=== PATIENT | female | born 1985 | race Caucasian/White ===

== ENCOUNTER 2018-11-07 11:47 | Observation (INO) | payer MEDICAID ==
--- NOTE | 2018-11-07 11:57 | ED Physician Documentation ---
General Adult - HISTORIAN Historian: patient - HPI Stated Complaint: nausea and vomiting x 4 days exposed to flu A Chief Complaint: Nausea,Vomiting,Diarrhea Onset: days ago (4) Timing: still present Severity: moderate Further Comments: yes (She states that she was exposed to Influenza A this week from a friend who is now hospitalized. She has had low grade fever x 3 days. nausea started 4 days ago with vomiting that is increasing. She is worried about her potassium which she self medicates over the counter because a few years ago she had low potassium with a similar illness. She has tried to drink fluids this am but states she just keeps vomiting. She states she has had 14 episodes of vomiting this am. She was once on b/p meds but was told to stop because she was better. Denies any abdominal pain.) Last known Well Code/Unknown Code: Unknown - ROS CONST: fever, weakness EYES/ENT: denies: sore throat, nasal drainage, nasal congestion CVS/RESP: cough. denies: shortness of breath GI/: vomiting, nausea. denies: abdominal pain, problems urinating, diarrhea MS/SKIN/LYMPH: denies: rash NEURO/PSYCH: denies: headache - PAST HX Past History: other (she was treated for hypertension but was told she is better this was approx one year ago ) Immunizations: UTD Allergies/Adverse Reactions: Allergies Allergy/AdvReac Type Severity Reaction Status Date / Time meperidine [From Demerol] Allergy Mild Itchy Skin Verified 11/07/18 12:21 Home Medications: Ambulatory Orders Medication Instructions Recorded Potassium 11/07/18 - SOCIAL HX Smoking History: cigarettes Alcohol Use: none Drug Use: none - FAMILY HX Family History: No - VITAL SIGNS Vital Signs: Vital Signs Temp Pulse Resp BP Pulse Ox 124/72 12/04/15 22:44 - REVIEWED ASSESSMENTS Nursing Assessment Reviewed: Yes Vitals Reviewed: Yes Progress - Progress Progress: 1340: nausea is improved. NO vomiting since arrival. DG 1345: based on lab and UTI will admit for observation DG ED Results Lab/Radiology - Radiology Radiology Impressions: Chest, PA and lateral History: Cough, fever Findings: The heart, lungs, pleura, mediastinum and bony thorax are normal. Impression: Normal. Electronically signed on Nov 07, 2018 1:40:41 PM NURSERY SCHOOL TEACHER by: Faisal Parikh General Adult Physical Exam - PHYSICAL EXAM GENERAL APPEARANCE: no distress EENT: eye inspection normal, no signs of dehydration NECK: normal inspection CVS: reg rate & rhythm, heart sounds normal ABDOMEN: soft, normal bowel sounds, no distension, non-tender BACK: normal inspection, no CVA tenderness SKIN: warm/dry, normal color EXTREMITIES: non-tender, normal range of motion, no evidence of injury, no edema NEURO: oriented X3 Discharge Clincal Impression: Hypokalemia UTI (urinary tract infection) Qualifiers: Urinary tract infection type: site unspecified Hematuria presence: without hematuria Qualified Code(s): N39.0 - Urinary tract infection, site not specified Comments: 1345 admit observation DG Condition: Fair Disposition: ADMITTED INPATIENT Decision to Admit: [id number] Date of Decison to Admit: 11/07/18 Decision Time: 13:45
[2018-11-07] MEDS ORDERED: ONDANSETRON HCL/PF 4 MG/ 2ML VIAL IVP ONE (12:09)
[2018-11-07] MEDS ORDERED: 0.9 % SODIUM CHLORIDE 1,000 ML IV ONE (12:09)
[2018-11-07] MEDS ORDERED: POTASSIUM CHLORIDE 20 MEQ/10ML VIAL IV ONE (13:13)
[2018-11-07] MEDS ORDERED: POTASSIUM CHLORIDE 20 MEQ/NS 1,000 ML IV ONE ×2 (13:35→13:38)
[2018-11-07] MEDS ORDERED: ONDANSETRON HCL/PF 4 MG/ 2ML VIAL IVP PRN (14:02)
[2018-11-07] MEDS ORDERED: CIPROFLOXACIN/D5W 400 MG in PREMIX BAG 1 BAG IV ONE (14:05)
--- NOTE | 2018-11-07 14:30 | Diagnostic Imaging Report ---
NEDRA MANE [facility] [id number] [facility] [address] [place], [place]. [address] Report Submission Date: Nov 07, 2018 1:40:41 PM BLENDING KETTLE TENDER Patient Study Name: ALICIA LR Date: Nov 07, 2018 1:04:46 PM BLENDING KETTLE TENDER Modality Type: DX Gender: F Description: CHEST : 81 Institution: [facility] Physician: NEDRA MANE Chest, PA and lateral History: Cough, fever Findings: The heart, lungs, pleura, mediastinum and bony thorax are normal. Impression: Normal. Electronically signed on Nov 07, 2018 1:40:41 PM BLENDING KETTLE TENDER by: Faisal LIM
[2018-11-07 16:17] VITALS: BMI 27.8
[2018-11-07] MEDS ORDERED: CIPROFLOXACIN/D5W 200 ML IV ONE (17:26)
[2018-11-07] MEDS ORDERED: POTASSIUM CHLORIDE 10 MEQ TABLET.ER PO ONE (17:30)
[2018-11-07] MEDS: 0.9 % SODIUM CHLORIDE 1,000 ML IV SCH (18:16)
--- NOTE | 2018-11-07 19:51 | History and Physical Report ---
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 Gastrointestinal: denies: Constipation, GERD Heme/Onc: denies: Anemia NOS Psych: denies: Anxiety Musculoskeletal: denies: Chronic low back pain Rheumatologic: denies: Fibromyalgia - Past Surgical History Past Surgical History: None - Past Social History Smoke: 1 pack per day Alcohol: None Drugs: None Lives: Alone Domestic Violence: Negative - Health Maintenance Health Maintenance: Other (medication compliance ) Pneumonia Vaccine: No Resuscitation Status: Resusciation Status Resuscitation Status Full Code Review of Systems - Review of Systems Constitutional: Fever, Chills, Weakness Eyes: negative: pain ENT: negative: Ear Pain, Mouth Pain Respiratory: negative: Cough Cardiovascular: negative: Chest Pain, Palpitations Gastrointestinal: Nausea, Vomiting, Diarrhea. negative: Abdominal Pain Genitourinary: negative: Dysuria Musculoskeletal: negative: Neck Pain Skin: negative: Rash Neurological: Weakness. negative: Numbness, Incoordination, Change in Speech - Medications/Allergies Allergies/Adverse Reactions: Allergies Allergy/AdvReac Type Severity Reaction Status Date / Time meperidine [From Demerol] Allergy Mild Itchy Skin Verified 11/07/18 14:52 Home Medications: Home Medications Promethazine HCl [Phenergan] 25 mg PO Q6H PRN 11/07/18 Current Inpatient Medications: Current Inpatient Medications CIPROFLOXACIN/D5W 400 mg/ (PREMIX BAG) 200 mls @ 200 mls/hr IV NOW ONE Stop: 11/07/18 15:04 Last Admin: 11/07/18 18:18 Dose: 200 mls/hr Sodium Chloride (Normal Saline) 1,000 mls @ 100 mls/hr IV Q10H [facility] Last Admin: 11/07/18 18:16 Dose: 100 mls/hr Ondansetron HCl (Zofran 4 Mg/2 Ml) 4 mg IVP Q6H PRN PRN Reason: Nausea / Vomiting Potassium Chloride (Klor-Con 10) 10 meq PO DAILY ONE Stop: 11/07/18 17:31 Last Admin: 11/07/18 17:30 Dose: 10 meq Potassium Chloride (Klor-Con 10) 10 meq PO DAILY [facility] Exam - Exam Vital Signs: Vital Signs (72 hours) 11/07/18 11/07/18 11/07/18 11:52 13:59 14:16 Temperature 99.3 F 98.6 F Pulse Rate 88 Pulse Rate [ 98 H 88 Right Pulse ox] Respiratory 32 H 18 Rate Blood Pressure 143/106 130/85 [Right Arm] O2 Sat by Pulse 97 98 96 Oximetry 11/07/18 11/07/18 11/07/18 15:45 16:00 16:20 Temperature 98.6 F 98.6 F Pulse Rate 88 88 Pulse Rate [ 88 88 Right Pulse ox] Respiratory 18 18 Rate Blood Pressure 130/85 130/85 [Right Arm] O2 Sat by Pulse 96 96 Oximetry 11/07/18 11/07/18 11/07/18 17:00 17:19 18:00 Temperature 98.6 F Pulse Rate 84 76 Pulse Rate [ 69 Right Pulse ox] Respiratory 16 Rate Blood Pressure 138/78 [Right Arm] O2 Sat by Pulse 96 98 Oximetry 11/07/18 11/07/18 11/07/18 19:00 19:33 19:34 Temperature Pulse Rate 79 69 74 Pulse Rate [ 69 Right Pulse ox] Respiratory 16 Rate Blood Pressure [Right Arm] O2 Sat by Pulse Oximetry 11/07/18 19:36 Temperature Pulse Rate Pulse Rate [ Right Pulse ox] Respiratory Rate Blood Pressure [Right Arm] O2 Sat by Pulse 100 Oximetry General: Alert, Oriented to Person, Oriented to Place, Oriented to Time, Cooperative, No acute distress HEENT: PERRLA Neck: Normal Range of Motion. No: Stridor, Lymphadenopathy Lungs: Clear to auscultation, Normal air movement, Respiratory Distress Cardiovascular: Regular rate Abdomen: Normal bowel sounds, No tenderness Integumentary: Normal, [place], Warm, Dry Extremities: No clubbing Neurological: Normal gait, Normal speech Psych/Mental Status: Mental status NL VTE Assessment - RISK FACTOR SCORE VTE RISK FACTOR SCORES: AGE 40-60 YEARS - RISK VTE LOW RISK: SCORE OF 1 OR LESS (RISK PROXIMAL DVT 0.4%) NO PROPHYLAXIS NEEDED
[2018-11-07] MEDS ORDERED: PANTOPRAZOLE SODIUM 40 MG TABLET.DR PO ONE (21:55)
[2018-11-07] MEDS: POTASSIUM CHLORIDE 10 MEQ TABLET.ER PO SCH (22:16)
[2018-11-08] MEDS: 0.9 % SODIUM CHLORIDE 1,000 ML IV SCH ×2 (03:57→04:56)
[2018-11-08 06:56] LABS: eGFR (Non-African) > 60
--- NOTE | 2018-11-08 07:02 | Discharge Summary ---
Discharge Summary - Discharge Sumary History of Present Illness: Hypokaleamia and UTI Condition at Discharge: Stable Home Medications: Ambulatory Orders Medication Instructions Recorded Promethazine HCl [Phenergan] 25 mg PO Q6H PRN 11/07/18 Consultations this Visit: Other (a PCP ) Procedures this Visit: None Allergies/Adverse Reactions: Allergies Allergy/AdvReac Type Severity Reaction Status Date / Time meperidine [From Demerol] Allergy Mild Itchy Skin Verified 11/07/18 14:52 Patient Problems: Current Active Problems Problem Status Onset Hypokalemia Acute UTI (urinary tract infection) Acute Discharge Summary: She was admitted for UTI with nausea and vomiting and also found to have hypokalemia These are now resolving and she is ready for discharge She needs a PCP and she is aware to call and make appt today
[2018-11-08 07:12] LABS: eGFR (Non-African) > 60
[2018-11-08 07:25] LABS: APPEARANCE,URINE CLEAR (CLEAR); COLOR,URINE AMBER (YELLOW)
[2018-11-08 07:26] LABS: OCCULT BLOOD,URINE NEGATIVE (NEGATIVE)
[2018-11-08 07:31] LABS: CANNABINOIDS NEGATIVE ng/mL (< 50)
[2018-11-08 07:32] LABS: METHYLENEDIOXYMETHAMPHETAMINE NEGATIVE ng/mL (<500)
[2018-11-08 07:44] LABS: MEAN CORPUSCULAR HEMOGLOBIN 32.9 pg (28.0-34.0)
[2018-11-08 07:45] LABS: BASOPHILS % 0.5 (0.0-1.5); EOSINOPHILS % 1.3 % (0.0-6.8); MONOCYTES % 7.2 % (0.0-11.0); NEUTROPHILS # 7.3 # k/uL (1.4-7.7)
[2018-11-08 07:46] LABS: eGFR (Non-African) > 60
[2018-11-08] MEDS: POTASSIUM CHLORIDE 10 MEQ TABLET.ER PO SCH (08:23)
[2018-11-08 08:33] VITALS: BP 131/88
== END 2018-11-08 10:00 | disposition home or self-care (01) ==
LOC: ED 11:47 → SOUTH 13:24
PROVIDERS: ADMIT Nurse Practitioner Family; ATTEND Nurse Practitioner Family
DX: E87.6 Hypokalemia (principal); N39.0 Urinary tract infection, site not specified; R11.2 Nausea with vomiting, unspecified
CPT/HCPCS: 71046; 80053; 80320; 80377; 81002; 83690; 84703; 85025; 87040; 87186; 87400; 96365; 96366; 96375; 99217; 99218; 99283; 99284; J0744; J2405; J3480; G0378; G0480; G0481; J7030; S1016